=== PATIENT | male | born 1960 | race Caucasian/White ===

== ENCOUNTER → 2018-06-18 | Outpatient (CLI) | payer OTHER ==
--- NOTE | 2018-06-18 09:37 | MRI ---
EXAM DESCRIPTION: Elbow,Right CLINICAL HISTORY: 58 years, Male, FALL WITH RT ELBOW PAIN COMPARISON: None TECHNIQUE: MRI of the right elbow was performed with multiplanar multi sequence imaging according to our usual protocol. FINDINGS: Marked thickening and increased signal intensity of the common extensor origin lateral humerus. This is especially true of the articular side fibers with about 50% of the thickness port and slightly delaminated. Radial collateral intact. Medial/ulnar collateral and common flexor intact and normal. Biceps, triceps, brachialis intact and normal. No fracture or bone lesion or joint effusion. IMPRESSION: High-grade partial tear common extensor Electronically signed by: Reji Osorio MD 06/18/2018 9:36 AM [facility]
== END ==
LOC: MRI 07:00
PROVIDERS: ATTEND Nurse Practitioner Family
DX: S56.511A Strain of other extensor muscle, fascia and tendon at forearm level, right arm, initial encounter (principal)